=== PATIENT | male | born 1955 | race Caucasian/White ===

== ENCOUNTER 2021-07-11 11:40 | Emergency (ER) | payer MEDICARE, OTHER ==
--- NOTE | 2021-07-11 12:38 | EDM.PDOC ---
ED HPI GENERAL MEDICAL PROBLEM - General Chief Complaint: General Stated Complaint: LIGHTHEADED X1WEEK Time Seen by Provider: 07/11/21 12:01 Source of Information: Reports: Patient, Family History Limitations: Reports: No Limitations - History of Present Illness INITIAL COMMENTS - FREE TEXT/NARRATIVE: The patient presents from the gym for lightheadedness, shortness of breath and nausea. This has been going on for about a week and a half. He started going back to the gym to get his A1C down. He says after every work out he feels lightheaded, has shortness of breath and nausea. He sits for awhile and feels better. Today was worse. He does have a history of Atrial fibrillation and he is on blood thinners and metoprolol and another medication for rate control. He has tried to check his pulse when this happens and cannot tell if there is any skipped beats or irregular heart rhythms. He had a stress test before but when he did it he went into A-fib and they stopped it. He denies fever, chills, cough, chest pain, abdominal pain, vomiting or diarrhea. Onset: Gradual Duration: Week(s): (1.5) Severity: Moderate Improves with: Reports: None Worsens with: Reports: None Associated Symptoms: Reports: Nausea/Vomiting, Shortness of Breath. Denies: Chest Pain, Cough, Fever/Chills, Headaches Past Medical History Cardiovascular History: Reports: Afib, Hypertension Neurological History: Reports: Other (See Below) Other Neuro History: headaches Endocrine/Metabolic History: Reports: Diabetes, Type II Hematologic History: Reports: Anticoagulation Therapy Oncologic (Cancer) History: Reports: Other (See Below) Other Oncologic History: precancerous skin removed from top of head - Infectious Disease History Infectious Disease History: Reports: Chicken Pox Social & Family History - Family History Oncologic: Reports: Lung, Prostate - Recreational Drug Use Recreational Drug Use: No Drug Use in Last 12 Months: No ED ROS GENERAL - Review of Systems Review Of Systems: See Below Constitutional: Reports: No Symptoms HEENT: Reports: No Symptoms Respiratory: Reports: Shortness of Breath. Denies: Cough Cardiovascular: Reports: Lightheadedness. Denies: Chest Pain Endocrine: Reports: No Symptoms GI/Abdominal: Reports: Nausea. Denies: Abdominal Pain, Vomiting : Reports: No Symptoms Musculoskeletal: Reports: No Symptoms Skin: Reports: No Symptoms ED EXAM, GENERAL - Physical Exam Exam: See Below Exam Limited By: No Limitations General Appearance: Alert, No Apparent Distress Ears: Normal External Exam Nose: Normal Inspection Head: Atraumatic, Normocephalic Neck: Normal Inspection Respiratory/Chest: No Respiratory Distress, Lungs Clear, Normal Breath Sounds Cardiovascular: Regular Rate, Rhythm, No Edema, No Murmur GI/Abdominal: Soft, Non-Tender, No Organomegaly, No Mass Extremities: Normal Inspection Neurological: Alert, Oriented, No Motor/Sensory Deficits #1 Interpretation EKG Date: 07/11/21 Time: 12:58 Rhythm: NSR Rate (Beats/Min): 62 Branch: Normal P-Wave: Present QRS: Normal ST-T: Normal QT: Normal Course - Vital Signs Last Recorded V/S: Last Vital Signs Temp 98.3 F 07/11/21 12:03 Pulse 95 07/11/21 12:03 Resp 18 07/11/21 12:03 BP 134/74 07/11/21 12:03 Pulse Ox 95 07/11/21 12:03 - Orders/Labs/Meds Orders: Active Orders 24 hr Category Date Time Status Cardiac Monitoring [RC] . DIRECTED Care 07/11/21 12:32 Active Holter Monitor 48 Hours [RC] .PRN Care 07/11/21 14:51 Active CORONAVIRUS COVID-19 OSEI [MOLEC] Stat Lab 07/11/21 14:20 Received Labs: Laboratory Tests 07/11/21 07/11/21 07/11/21 Range/Units 12:50 12:50 12:50 WBC 5.39 (4.23-9.07) K/mm3 RBC 4.85 (4.63-6.08) M/mm3 Hgb 15.6 (13.7-17.5) gm/dl Hct 45.0 (40.1-51.0) % MCV 92.8 H (79.0-92.2) fl MCH 32.2 (25.7-32.2) pg MCHC 34.7 (32.2-35.5) g/dl RDW Std Deviation 41.3 (35.1-43.9) fL Plt Count 188 (163-337) K/mm3 MPV 10.5 (9.4-12.3) fl Neut % (Auto) 60.8 (34.0-67.9) % Lymph % (Auto) 25.4 (21.8-53.1) % Cottle % (Auto) 12.1 (5.3-12.2) % Eos % (Auto) 1.3 (0.8-7.0) Baso % (Auto) 0.2 (0.1-1.2) % Neut # (Auto) 3.28 (1.78-5.38) K/mm3 Lymph # (Auto) 1.37 (1.32-3.57) K/mm3 Cottle # (Auto) 0.65 (0.30-0.82) K/mm3 Eos # (Auto) 0.07 (0.04-0.54) K/mm3 Baso # (Auto) 0.01 (0.01-0.08) K/mm3 D-Dimer, Quantitative 0.38 (0.19-0.50) mg/L Sodium 138 (136-145) mEq/L Potassium 4.3 (3.5-5.1) mEq/L Chloride 103 (98-107) mEq/L Carbon Dioxide 25 (21-32) mEq/L Anion Gap 14.3 (5-15) BUN 17 (7-18) mg/dL Creatinine 1.0 (0.7-1.3) mg/dL Est Cr Clr Drug Dosing 81.01 mL/min Estimated GFR (MDRD) > 60 (>60) mL/min BUN/Creatinine Ratio 17.0 (14-18) Glucose 188 H (70-99) mg/dL Calcium 9.4 (8.5-10.1) mg/dL Magnesium 1.7 L (1.8-2.4) mg/dL Total Bilirubin 0.8 (0.2-1.0) mg/dL AST 17 (15-37) U/L ALT 29 (16-63) U/L Alkaline Phosphatase 93 (46-116) U/L Troponin I < 0.017 (0.00-0.056) ng/mL Total Protein 6.6 (6.4-8.2) g/dl Albumin 3.5 (3.4-5.0) g/dl Globulin 3.1 gm/dL Albumin/Globulin Ratio 1.1 (1-2) - Re-Assessments/Exams Free Text/Narrative Re-Assessment/Exam: 07/11/21 14:35 I ordered an IV saline lock, EKG, CXR and labs. His CXR shows nothing acute. His EKG shows a NSR with no acute changes. His CBC looks good. His glucose was 188. His troponin was negative. 07/11/21 14:41 The official read on the CXR shows a possible nodule in the left. The radiologist recommends a repeat CXR. I talked to the patient and he knows about the nodule. He had it worked up in the past. 07/11/21 14:44 The D-dimer was negative. 07/11/21 14:52 I talked to the stamp clerk art consultant at [place] and she felt it was a good idea to do the holter monitor and have him follow up with Dr Fish. Departure - Departure Time of Disposition: 14:55 Disposition: Home, Self-Care 01 Condition: Good Clinical Impression: Lightheadedness - Discharge Information *PRESCRIPTION DRUG MONITORING PROGRAM REVIEWED*: Not Applicable *COPY OF PRESCRIPTION DRUG MONITORING REPORT IN PATIENT [facility]ANNA[facility]: Not Applicable Referrals: Seferino Warner MD [Primary Care Provider] - Forms: ED Department Discharge Additional Instructions: Wear the holter monitor for 2 days. Keep taking your medications as prescribed. Call Dr Wilder tomorrow. Please return if you are worse. Sepsis Event Note (ED) - Focused Exam Vital Signs: Vital Signs Temp Pulse Resp BP Pulse Ox 07/11/21 12:03 98.3 F 95 18 134/74 95 - My Orders Last 24 Hours: My Active Orders 07/11/21 12:32 Cardiac Monitoring [RC] . DIRECTED 07/11/21 14:20 CORONAVIRUS COVID-19 OSEI [MOLEC] Stat 07/11/21 14:51 Holter Monitor 48 Hours [RC] .PRN - Assessment/Plan Last 24 Hours: My Active Orders 07/11/21 12:32 Cardiac Monitoring [RC] . DIRECTED 07/11/21 14:20 CORONAVIRUS COVID-19 OSEI [MOLEC] Stat 07/11/21 14:51 Holter Monitor 48 Hours [RC] .PRN
--- NOTE | 2021-07-11 13:47 | CR ---
Chest: Portable view of the chest was obtained. Comparison: No prior chest imaging is available. Slight nodular density is seen within the left lung base most likely representing nipple density. Lungs otherwise show no definite acute parenchymal change. Heart size and mediastinum are normal. Degenerative change is seen within both acromioclavicular joints. No acute osseous abnormality is appreciated. Impression: 1. Nodular density is seen within the left lung base. Recommend repeat study with nipple marker in place. 2. Nothing acute is otherwise appreciated. Diagnostic code #3
== END 2021-07-11 15:19 | disposition home or self-care (01) ==
LOC: JD.ED 11:40
DX: R42 Dizziness and giddiness (principal); I48.91 Unspecified atrial fibrillation; I10 Essential (primary) hypertension; E11.9 Type 2 diabetes mellitus without complications; Z20.822 Contact with and (suspected) exposure to COVID-19
CPT/HCPCS: 36415; 71045; 71045-26; 80053; 83735; 84484; 85025; 85379; 93005; 93010; 93225; 93226; 99283; 99285-25; U0002